=== PATIENT | female | born 1990 | race Caucasian/White ===

== ENCOUNTER 2022-05-23 17:04 | Day surgery (SDC) | payer BC ==
[~2022-05-23] VITALS: Ht 175.3 cm; Wt 84.5 kg
[2022-05-23] MEDS ORDERED: MOTRIN IB200 MG (17:28)
[2022-05-24] MEDS ORDERED: HYDROCODON-ACE1 EA10 PO (10:31)
--- NOTE | 2022-06-05 03:04 | PATH ---
[facility] [address] [place] [address] Signed SPECIMEN(S): A LEFT FALLOPIAN TUBE, ECTOPIC PREG SPECIMEN SOURCE: A. LEFT FALLOPIAN TUBE, ECTOPIC PREG CLINICAL HISTORY: Ectopic (10 weeks LMP), left tubal (gestational sac US 6 weeks). FINAL PATHOLOGIC DIAGNOSIS: Left fallopian tube, ectopic , left salpingectomy: - Disrupted portions of fallopian tube with thrombus and associated immature chorionic villi and decidua, consistent with ectopic fallopian tube . COMMENT: As part of [employer]' Quality Improvement Program, this case was reviewed by another member of our pathology staff. NRT:kendall:C2NR MICROSCOPIC EXAMINATION: Histologic sections of all submitted blocks are examined by light microscopy. These findings, together with the gross examination, support the pathologic diagnosis. GROSS DESCRIPTION: The specimen, labeled "MB, A," and designated on the requisition "left fallopian tube and ectopic ," is received in formalin and consists of a markedly fragmented portion of desai to red-brown soft tissue and fallopian tube (5.0 x 4.5 x 2.4 cm in aggregate). The tissue is sectioned to reveal pink-desai to red-brown cut surfaces. No parts are grossly identified. Customer Service And Sales Consultant sections are submitted in cassettes (A1-A3). AC (under the direct supervision of a pathologist) The Gross Description was prepared using a voice recognition system. The report was reviewed for accuracy; however, sound-alike word errors, addition and/or deletions may occur. If there is any question about this report, please contact Client Services. PERFORMING LABORATORY: The technical component was performed by [facility], [address] [place] [id number] (CLIA# [id number]). Professional interpretation was performed by [facility] PATIENT NAME: RITA RIVERO PATHOLOGY DATE OF : 88 REPORT #: [id number] PHYSICIAN: [facility] PCP: NO PRIMARY CARE PHYSICIAN REPORT IS CONFIDENTIAL AND NOT TO BE RELEASED WITHOUT AUTHORIZATION [facility] [address] [place], [place] [address] Signed [facility], [address] [place] [address], [facility] D, [place] [address] (CLIA# [id number]). Diagnostician: Mi Dyer MD Pathologist Electronically Signed 06/05/2022 Copies: ~ PATIENT NAME: RITA RIVERO PATHOLOGY DATE OF : [birth year] REPORT #: [id number] PHYSICIAN: [facility] PCP: NO PRIMARY CARE PHYSICIAN REPORT IS CONFIDENTIAL AND NOT TO BE RELEASED WITHOUT AUTHORIZATION
--- NOTE | 2022-06-05 21:00 | OR ---
[address], [place] [address] Signed DATE OF OPERATION: 05/23/2022 SURGEON: Ute Melgar DO PROCEDURE: Laparoscopic left salpingectomy, lysis of adhesions, chromopertubation. CSM CONSULTANT: Ni Adam MD PREOPERATIVE DIAGNOSES: Left tubal ectopic , infertility. POSTOPERATIVE DIAGNOSES: Left tubal ectopic , pelvic adhesions and endometriosis, infertility. ANESTHESIA: General. COMPLICATIONS: None. BLOOD LOSS: 50 mL. FINDINGS: Normal-appearing uterus, tubes with significant filmy adhesions to the pelvic sidewall, Electronically Signed By: UTE MELGAR DO 06/05/22 2100 PATIENT NAME: ANDERSON RIVERODESIRE SHERLYN Kearney OPERATIVE REPORT DATE OF : [birth year] REPORT #: [id number] PHYSICIAN: UTE MELGAR DO PCP: NO PRIMARY CARE PHYSICIAN REPORT IS CONFIDENTIAL AND NOT TO BE RELEASED WITHOUT AUTHORIZATION [address] [place], [place] [address] Signed posterior cul-de-sac, and underlying bowel. Left distal end of tube distended and distorted, densely incorporated with ectopic , which appeared to be partially adherent to the left ovary as well. Otherwise, normal left ovarian tissue. Right tube contorted and kinked, obscuring full view of right ovary. No methylene blue spillage was visualized from right tube, endometriosis lesions on the left uterosacral ligament. No liver capsule adhesions visualized. INDICATIONS: The patient is a 32-year-old, G4, P3-0-0-3, who presented to clinic for urgent followup immediately after ultrasound where an ectopic was noted in the left adnexa measuring greater than 5 cm. It was thought to be a tubal , separate from the ovary itself. Endometrial stripe was 2.5 cm and the patient had notable left lower quadrant tenderness and bleeding on exam. Risks, benefits, and alternatives to surgical versus medical versus expectant management were discussed, particularly highlighting the current symptomatic nature and size of ectopic and thickness of the endometrium as contraindications for medical management. Reviewed risks of rupture and acute hemodynamic instability, potential for catastrophic hemorrhage and . Risks, benefits, and alternatives to surgical management of ectopic were discussed. Discussed salpingectomy versus salpingostomy and concern for future fertility as well as concern for future recurrent ectopic . Discussed prior HSG concerning for possily hydrosalpinx bilaterally. Consents were signed and questions of the patient and her were answered to the best of my ability. DESCRIPTION OF PROCEDURE: The patient was taken to the operating room where she was placed under general anesthesia and positioned in dorsal lithotomy and prepped and draped in normal sterile fashion. Weighted speculum was placed in the vagina. The cervix was grasped with an Allis clamp in the 12 o'clock position and acorn uterine manipulator was placed without difficulty. Surgeon's gloves were changed and attention was turned to the abdomen where a 5 mm vertical incision was made in the umbilicus with a scalpel and a 5 mm trocar was placed under direct visualization. Pneumoperitoneum was achieved using CO2 gas. A 5 mm incision was made in the left lower quadrant with a scalpel after infiltration with local anesthetic and 5 mm trocar was placed under direct visualization without complication. In the right lower quadrant, an 8 mm incision was made with a scalpel after infiltration with local anesthetic and an 8 mm expandable trocar was placed without difficulty under Electronically Signed By: UTE MELGAR DO 06/05/22 2100 PATIENT NAME: RITA RIVERO OPERATIVE REPORT DATE OF : 88 REPORT #: [id number] PHYSICIAN: UTE MELGAR DO PCP: NO PRIMARY CARE PHYSICIAN REPORT IS CONFIDENTIAL AND NOT TO BE RELEASED WITHOUT AUTHORIZATION [facility] [address] [place], [place] [address] Signed direct visualization, first with a Veress needle and then with an expanding trocar. The patient was positioned in Trendelenburg and pelvis was surveyed with findings as noted above. Due to the morbidly adherent nature of the to the fimbriated end of the tube, decision was made to proceed with salpingectomy. Tube was transected and cut at the cornua using a LigaSure device and dissection was continued parallel to the tube along the mesosalpinx with some difficulty encountered due to significant distortion of the tube. Filmy pelvic adhesions were lysed with the LigaSure device to allow full mobilization of the distal end of the tube, which could then be cauterized and cut with LigaSure device, excising the tube and allowing for full visualization of the otherwise normal-appearing left ovary. Filmy adhesions on the right were taken down with LigaSure device and blunt dissection. Chromopertubation was performed injecting dilute methylene blue through the acorn uterine manipulator while the right tube was noted to distend with fluid. No spillage was noted. Ectopic was placed in an EndoCatch bag and brought through the right lateral trocar. Pelvis was suction irrigated with warm sterile saline. Fascia was closed with 0 Vicryl, first using a Luis-Jennifer device with direct visualization and then in the middle using the UR needle also under direct visualization without complication. Excellent closure was noted. Pneumoperitoneum was evacuated. Hemostasis persisted after evacuation of pneumoperitoneum. The skin was closed with 4-0 Monocryl. Mcdowell was removed and uterine manipulator was removed. Sponge and instrument counts were correct and the patient was taken to recovery in stable and satisfactory condition. Ute Melgar DO EMZ/MODL /[id number] Copies: ~ Electronically Signed By: UTE MELGAR DO 06/05/22 2100 PATIENT NAME: RITA RIVERO OPERATIVE REPORT DATE OF : 88 REPORT #: [id number] PHYSICIAN: UTE MELGAR DO PCP: NO PRIMARY CARE PHYSICIAN REPORT IS CONFIDENTIAL AND NOT TO BE RELEASED WITHOUT AUTHORIZATION
== END 2022-05-24 12:25 | disposition home or self-care (01) ==
LOC: FBCO 17:04 → FBC 17:04 → FBCO 05-24 12:25
PROVIDERS: ATTEND Obstetrics & Gynecology
PROC: 0UB64ZZ Excision of Left Fallopian Tube, Percutaneous Endoscopic Approach (ICD-10-PCS; principal; 2022-05-23 18:51)
DX: O00.102 Left tubal pregnancy without intrauterine pregnancy (principal); Z20.822 Contact with and (suspected) exposure to COVID-19; Z87.42 Personal history of other diseases of the female genital tract
CPT/HCPCS: 00840; 36415; 85027; 86850; 86900; 86901; 87502; A9270; C9803; J0131; J1100; J1885; J2001; J2405; J2704; J3010; Q9968; U0003

== ENCOUNTER 2023-08-02 09:02 | Inpatient (IN) | payer OTHER ==
[~2023-08-02] VITALS: Ht 175.3 cm; Wt 110.2 kg
[~2023-08-02 09:02] MED LIST: HYDROCODON-ACE1 EA10 PO; MOTRIN IB200 MG
[2023-08-02 10:44] LABS: BASOPHILS 0.3 % (0-2); EOSINOPHILS 0.6 % (0-6); HEMATOCRIT 35.5 % (35.0-50.0); HEMOGLOBIN 11.8 g/dL (12.0-18.0); LYMPHOCYTES 21.1 % (24-44); MCH 27.8 (27-36); MCHC 33.3 g/dl (30-36); MCV 83.4 fl (81-99); MONOCYTES 8.1 % (0-12); NEUTROPHILS 69.9 % (39-80); PLATELET COUNT 208 K/uL (140-440); RBC 4.26 M/ul (4.3-5.7); RDW 15.2 (10.5-15.0)
[2023-08-02 11:20] LABS: ABO O; ANTIBODY SCREEN NEGATIVE; RH POSITIVE
[2023-08-02 12:05] LABS: ALBUMIN 2.2 g/dL (3.4-5.0); ALBUMIN/GLOBULIN RATIO 0.5 (1.1-2.4); ANION GAP 14.4 (7-21); BILIRUBIN, TOTAL 0.2 ng/dL (0.2-1.0); BUN/CREATININE RATIO 13.75 (6.0-28.6); CALCIUM 8.8 mg/dL (8.5-10.1); CREATININE, SERUM 0.8 mg/dL (0.55-1.02); POTASSIUM 4.4 mmol/L (3.5-5.1); PROTEIN, TOTAL 6.6 g/dL (6.4-8.2)
[2023-08-02 12:36] LABS: CREATININE, RANDOM URINE 246.42 mg/dL (NOT ESTABLISHED); PROTEIN/CREATININE RATIO 0.14 mg/mg (0.010-0.107)
[2023-08-02 12:47] LABS: AMPHETAMINES, URINE NEGATIVE (NEGATIVE); BARBITURATES, URINE NEGATIVE (NEGATIVE); BENZODIAZEPINE, URINE NEGATIVE (NEGATIVE); BUPRENORPHINE, URINE NEGATIVE (NEGATIVE); CANNABINOID, URINE NEGATIVE (NEGATIVE); COCAINE, URINE NEGATIVE (NEGATIVE); ECSTASY, URINE NEGATIVE (NEGATIVE); FENTANYL, URINE NEGATIVE (NEGATIVE); METHADONE, URINE NEGATIVE (NEGATIVE); OPIATES, URINE NEGATIVE (NEGATIVE); OXYCODONE, URINE NEGATIVE (NEGATIVE); PHENCYCLIDINE, URINE NEGATIVE (NEGATIVE)
--- NOTE | 2023-08-02 14:27 | PR ---
[facility] [address] [facility] [place], [place] [address] Signed Progress Notes IP Datetime Report Generated by CPN: 08/02/2023 14:27 PROGRESS NOTES: [id number] Impression: Reassuring Heart Rate Plan: Continue Present Management VITAL SIGNS: [id number] Vital Signs: Reviewed VS Notable Details: No severe range BPs EXAM: [id number] Effacement: 25 Station: -3 Contractions: Irregular MEMBRANES: [id number] Comments: Pt seen and evaluated. Doing well. Occasional non-painful contractions. No severe range BPs or other concerns. Continue induction. FETUS A: [id number] FHR Baseline: 150 Variability: Moderate 6-25bpm Accelerations: 15X15 Decelerations: None FHR Category: Category I Presentation: Vertex Comments on Fetus A: No evidence of metabolic acidosis FETUS B: [id number] Signing Physician: Dax Hoff DO Copies: ~ *Electronically Signed* 08/02/23 1427 DAX HOFF (ALINA) DO PATIENT NAME: KRYSTINAKISHARITA PEGUERO Caoi PROGRESS NOTE DATE OF : 88 PHYSICIAN: DAX HOFF (ALINA) DO RPT #: [id number] REPORT IS CONFIDENTIAL AND NOT TO BE RELEASED WITHOUT AUTHORIZATION
--- NOTE | 2023-08-02 17:43 | PR ---
[facility] [address] [place], [place] [address] Signed Progress Notes IP Datetime Report Generated by AMANDA: 08/02/2023 17:42 PROGRESS NOTES: [id number] Impression: Normal Progression of Labor; Reassuring Heart Rate Procedures: Sterile Vag Exam Plan: Continue Present Management; Cervical Ripening VITAL SIGNS: [id number] Vital Signs: Reviewed VS Notable Details: No severe range BPs EXAM: [id number] Dilatation: 1.0 Effacement: 25 Station: -3 Contractions: Rare MEMBRANES: [id number] Comments: Pt seen and examined. Doing well. Comfortable. Cervix unchanged after 2 doses of cytotec. No severe range BPs or symptoms. Discussed options for continued cervical ripening w/ cytotec vs Cook Cath. Pt desires cytotec. Will continue induction as planned w/ AROM when cervix ripe. All questions answered. FETUS A: [id number] FHR Baseline: 150 Variability: Moderate 6-25bpm Accelerations: 15X15 Decelerations: None FHR Category: Category I Presentation: Vertex Comments on Fetus A: No evidence of metabolic acidosis FETUS B: [id number] Signing Physician: Dax Hoff DO Copies: ~ *Electronically Signed* 08/02/23 0038 DAX HOFF (ALINA) DO PATIENT NAME: RITA RIVERO PROGRESS NOTE DATE OF : 88 PHYSICIAN: DAX HOFF (JD) DO RPT #: [id number] REPORT IS CONFIDENTIAL AND NOT TO BE RELEASED WITHOUT AUTHORIZATION
--- NOTE | 2023-08-03 07:09 | PR ---
[facility] [address] [place], [place] [address] Signed Progress Notes IP Datetime Report Generated by AMANDA: 08/03/2023 07:09 PROGRESS NOTES: [id number] Impression: Normal Progression of Labor; Reassuring Heart Rate Procedures: Sterile Vag Exam Plan: Continue Present Management; Anticipate Vaginal Delivery Informed Consent Obtain: Vaginal Delivery VITAL SIGNS: [id number] Vital Signs: Reviewed VS Notable Details: No severe range BPs EXAM: [id number] Dilatation: 7.0 Effacement: 90 Station: -2 Contractions: q 2 minutes MEMBRANES: [id number] Comments: Pt seen and examined. Doing well. Increased contractions and pt kindly received epidural per anesthesia and is now comfortable. SROM for moderate amount of meconium stained fluid. Anticipate soon. All questions answered. Will monitor FHT closely FETUS A: [id number] FHR Baseline: 150 Variability: Moderate 6-25bpm Accelerations: 15X15 Decelerations: Variable FHR Category: Category II Presentation: Vertex Comments on Fetus A: No evidence of metabolic acidosis FETUS B: [id number] Signing Physician: Dax Hoff DO Copies: ~ *Electronically Signed* 08/03/23708 DAX HOFF (ALINA) DO PATIENT NAME: RITA RIVERO PROGRESS NOTE DATE OF : 88 PHYSICIAN: DAX HOFF (JD) DO RPT #: [id number] REPORT IS CONFIDENTIAL AND NOT TO BE RELEASED WITHOUT AUTHORIZATION
[2023-08-04 05:23] LABS: HEMATOCRIT 30.7 % (35.0-50.0); HEMOGLOBIN 10.5 g/dL (12.0-18.0); MCH 28.2 (27-36); MCHC 34.2 g/dl (30-36); MCV 82.3 fl (81-99); RBC 3.73 M/ul (4.3-5.7)
--- NOTE | 2023-08-04 08:08 | PR ---
[facility] [address] [place], [place] [address] Signed PP Progress Notes Datetime Report Generated by CPN: 08/04/2023 08:08 SUBJECTIVE: [id number] Pain: Within Normal Limits Nausea/Vomiting: Denies Flatus: Yes Bowel Movement: No Vital Signs: [id number] Vital Signs: Reviewed Notable Details: No sustained elevated BPs. Asymptomatic Cardiovascular: Normal Respiratory: Normal Abdomen/Uterus: Normal Lochia: Normal Vulva/Perineum: Not Done Breasts: Not Done CVA Tenderness: Normal Extremities: Normal Incision: Not Applicable Progress: Normal Exam Comments: Fundus firm U-2 nontender IMPRESSION/PLAN/PROCEDURES: [id number] Impression: Normal Progression Plan: Discharge Progress Notes: Pt seen and examined. Doing well. Ambulating, voiding, and tolerating full diet. Pain and lochia minimal. well. No sustained elevated BPs yesterday and no YUN, RUQ pain, or visual changes. Reviewed s/sx pp preE. Discussed importance of BP check early next week. Reviewed shoulder dystocia and baby is doing well today. Reviewed maneuvers employed and all questions were answered. Discussed implications on future deliveries; pt and are unsure if they will attempt again. Hx of infertility and declines contraception. Reviewed d/c instructions and medications in detail. All questions answered. Signing Physician: Dax Hoff DO Copies: ~ *Electronically Signed* 08/04/23 0808 DAX HOFF (ALINA) DO PATIENT NAME: RITA RIVERO PROGRESS NOTE DATE OF : 88 PHYSICIAN: DAX HOFF (JD) DO RPT #: [id number] REPORT IS CONFIDENTIAL AND NOT TO BE RELEASED WITHOUT AUTHORIZATION
== END 2023-08-04 11:30 | disposition home or self-care (01) | DRG 807 ==
LOC: FBCO 09:02 → FBC 09:45
PROVIDERS: ADMIT Obstetrics & Gynecology; ATTEND Obstetrics & Gynecology
PROC: 10E0XZZ Delivery of Products of Conception, External Approach (ICD-10-PCS; principal; 2023-08-03)
PROC: 4A033R1 Measurement of Arterial Saturation, Peripheral, Percutaneous Approach (ICD-10-PCS; 2023-08-03)
PROC: 3E0R3BZ Introduction of Anesthetic Agent into Spinal Canal, Percutaneous Approach (ICD-10-PCS; 2023-08-03)
PROC: 00HU33Z Insertion of Infusion Device into Spinal Canal, Percutaneous Approach (ICD-10-PCS; 2023-08-03)
DX: O66.0 Obstructed labor due to shoulder dystocia (principal); Z37.0 Single live birth; Z3A.39 39 weeks gestation of pregnancy; O76 Abnormality in fetal heart rate and rhythm complicating labor and delivery; O77.0 Labor and delivery complicated by meconium in amniotic fluid; O13.4 Gestational [pregnancy-induced] hypertension without significant proteinuria, complicating childbirth
CPT/HCPCS: 36415; 80053; 80307; 82565; 82570; 82803; 83615; 84156; 84550; 85025; 85027; 86850; 86900; 86901; A9270; J2590; J7121

== ENCOUNTER 2025-03-23 19:46 | Emergency (ER) | payer OTHER ==
[~2025-03-23] VITALS: Ht 175.3 cm; Wt 98.0 kg
--- OUTSIDE RECORDS SUMMARY | 2025-03-23 19:50 | XMS ---
PreManage Notification: RITA RIVERO Security Cream Beater Events No recent Security Events currently on file CRITERIA MET - - 2 Visits in 30 Days CARE PROVIDERS There are no care providers on record at this time. [facility] has no Care Guidelines for this patient. Arlene VISIT COUNT (12 MO.) [facility] [place] T[facility] 2 NOTE: Visits indicate total known visits. ED/C VISIT TRACKING (12 MO.) 03/23/2025 19:47 [facility] TYPE: Emergency COMPLAINT: - SOB [facility]23[facility]2025 16:[facility] [place] [facility]: Emergency INPATIENT VISIT TRACKING (12 MO.) No inpatient visits to display in this time frame [email or web address]
[2025-03-23] MEDS ORDERED: AZITHROMYCIN250 MG PO (19:57)
[2025-03-23] MEDS ORDERED: LACTATED RINGER'S 1,000 ML IV ONE (20:00)
[2025-03-23] MEDS ORDERED: PRENATAL MULTI1 EAC3 PO (20:04)
[2025-03-23] MEDS ORDERED: ACETAMINOPHEN 325 MG TAB PO ONE (20:30)
[2025-03-23 20:31] LABS: BASOPHILS 0.3 % (0.1-1.2); EOSINOPHILS 0.5 % (0.7-5.8); LYMPHOCYTES 13.0 % (19.3-51.7); MCH 28.3 PG (25.6-32.2); MCHC 34.3 g/dL (32.2-35.5); MCV 82.3 fL (79.4-94.8); MONOCYTES 10.8 % (4.7-12.5); NEUTROPHILS 74.7 % (34.0-71.1); RBC 3.61 M/uL (3.93-5.22)
[2025-03-23 20:46] LABS: ALT (SGPT) 12.0 U/L (14-59); AST (SGOT) 12.0 U/L (15-37); GLOMERULAR FILTRATION RATE,EST 118.0 mL/min (>60); PROTEIN, TOTAL 6.6 g/dL (6.4-8.2); UREA NITROGEN 3.0 mg/dL (7-18)
[2025-03-23] MEDS ORDERED: CYCLOBENZAPRINE10 MG PO (22:09)
[2025-03-23] MEDS ORDERED: CYCLOBENZAPRINE HCL 10 MG HOME.PACK PO ONE (22:15)
[2025-03-23 22:44] VITALS: BP 107/70
[2025-03-23] MEDS ORDERED: ALBUTEROL SULFATE 8 GM HOME.PACK INH ONE (22:45)
== END 2025-03-23 22:45 | disposition home or self-care (01) ==
LOC: ED 19:46
PROVIDERS: Family Medicine
DX: A49.3 Mycoplasma infection, unspecified site (principal)
CPT/HCPCS: 36415; 80053; 85025; 94640; 99284; A9270; J7121

== ENCOUNTER 2025-06-05 18:52 | Inpatient (IN) | payer OTHER ==
[~2025-06-05] VITALS: Ht 175.3 cm; Wt 105.7 kg
--- OUTSIDE RECORDS SUMMARY | ~2025-06-05 | XMS | Continuity of Care Document ---
Demographics + + + | Address | [address] | | | [place] [address] | + + + | Preferred Language | Unknown | + + + | Marital Status | | + + + | Evangelical Affiliation | Unknown | + + + | Race | White | + + + | Ethnic Group | Not or | + + + Author + + + | Author | [facility] | + + + | Organization | [facility] | + + + | Address | [address] | | | [place] [address] | + + + | Phone | | + + + Care Team Providers + + + + | Care Pay Station Department Manager Name | Role | Phone | + + + + Unavailable | Unavailable | + + + + Unavailable | Unavailable | + + + + Allergies No information. Encounters No information. Functional Status No information. Immunizations No information. Medications + + + + | date | description | facility | + + + + | (no date) | AZITHROMYCIN | [facility] | | | | [facility] | + + + + | 2025-03-23 00:00 | CYCLOBENZAPRINE HCL | [facility] | | | | [facility] | + + + + Problems + + + + | date | description | facility | + + + + | 2025-03-23 00:00 | Mycoplasma infection | [facility] | | | | [facility] | + + + + Procedures No information. Results/Labs +--------+--------+ +---------+--------+---------+ | test | date | facility | value | unit | notes | +--------+--------+ +---------+--------+---------+ + + | Result panel 1 | + + + + + +--------+ + + | WBC # Bld | 2025-03-23 | | 7.51 | (missing) | (missing) | | Auto | 20:26:07 | [facility] | | | | + + + +--------+ + + + + | Result panel 2 | + + + + + +--------+ + + | Lymphocytes | 2025-03-23 | | 13.0 | (missing) | (missing) | | NFr Bld | 20:26:07 | [facility] | | | | | Auto [facility] | | | | + + + +--------+ + + + + | Result panel 3 | + + + + + +--------+ + + | Monocytes | 2025-03-23 | | 10.8 | (missing) | (missing) | | NFr Bld Auto | 20:26:07 | [facility] | | | | + + + +--------+ + + + + | Result panel 4 | + + + + + +-------+ + + | Eosinophil | 2025-03-23 | | 0.5 | (missing) | (missing) | | NFr Bld Auto | 20:26:07 | [facility] | | | | + + + +-------+ + + + + | Result panel 5 | + + + + + +-------+ + + | Basophils | 2025-03-23 | | 0.3 | (missing) | (missing) | | NFr Bld Auto | 20:26:07 | [facility] | | | | + + + +-------+ + + + + | Result panel 6 | + + + + + +-------+---------+ + | Glucose | 2025-03-23 | | 104 | mg/dL | (missing) | | Priya-abdelrahman | 20:26:07 | [facility] | | | | + + + +-------+---------+ + + + | Result panel 7 | + + + + + +-----+---------+ + | BUN | 2025-03-23 | | 3 | mg/dL | (missing) | | SerPl-mCnc | 20:26:07 | [facility] | | | | + + + +-----+---------+ + + + | Result panel 8 | + + + + + +--------+---------+ + | Creat | 2025-03-23 | | 0.64 | mg/dL | (missing) | | Priya-mCnc | 20:26:07 | [facility] | | | | + + + +--------+---------+ + + + | Result panel 9 | + + + + + +-------+ + + | eGFRcr | 2025-03-23 | | 118 | (missing) | (missing) | | SerPlBld | 20:26:07 | [facility] | | | | | CKD-EPI 2020 | [facility] | | | | + + + +-------+ + + + + | Result panel 10 | + + + + + +--------+ + + | BUN/Creat | 2025-03-23 | | 4.68 | (missing) | (missing) | | SerPl | 20:26:07 | [facility] | | | | + + + +--------+ + + + + | Result panel 11 | + + + + + +-------+ + + | Sodium | 2025-03-23 | | 134 | (missing) | (missing) | | SerPl-sCnc | 20:26:07 | [facility] | | | | + + + +-------+ + + + + | Result panel 12 | + + + + + +--------+ + + | RBC # Bld | 2025-03-23 | | 3.61 | (missing) | (missing) | | Auto | 20:26:07 | [facility] | | | | + + + +--------+ + + + + | Result panel 13 | + + + + + +-------+ + + | Potassium | 2025-03-23 | | 3.3 | (missing) | (missing) | | SerPl-sCnc | 20:26:07 | [facility] | | | | + + + +-------+ + + + + | Result panel 14 | + + + + + +-------+ + + | Chloride | 2025-03-23 | | 102 | (missing) | (missing) | | SerPl-sCnc | 20:26:07 | [facility] | | | | + + + +-------+ + + + + | Result panel 15 | + + + + + +------+ + + | CO2 | 2025-03-23 | | 21 | (missing) | (missing) | | [facility] | 20:26:07 | [facility] | | | | + + + +------+ + + + + | Result panel 16 | + + + + + +--------+ + + | Anion Gap | 2025-03-23 | | 14.3 | (missing) | (missing) | | SerPl | 20:26:07 | [facility] | | | | | Calculated.4 | [facility] | | | | + + + +--------+ + + + + | Result panel 17 | + + + + + +-------+---------+ + | Calcium | 2025-03-23 | | 8.3 | mg/dL | (missing) | | SerPl-mCnc | 20:26:07 | [facility] | | | | + + + +-------+---------+ + + + | Result panel 18 | + + + + + +-------+ + + | Prot | 2025-03-23 | | 6.6 | (missing) | (missing) | | SerPl-[facility] | 20:26:07 | [facility] | | | | + + + +-------+ + + + + | Result panel 19 | + + + + + +-------+ + + | Albumin | 2025-03-23 | | 2.2 | (missing) | (missing) | | SerPsergo-[facility] | 20:26:07 | [facility] | | | | + + + +-------+ + + + + | Result panel 20 | + + + + + +-------+ + + | Globulin | 2025-03-23 | | 4.4 | (missing) | (missing) | | Ser-mCnc | 20:26:07 | [facility] | | | | + + + +-------+ + + + + | Result panel 21 | + + + + + +--------+ + + | | 2025-03-23 | | 0.50 | (missing) | (missing) | | Albumin/Glob | 20:26:07 | [facility] | | | | | [facility] | | | | + + + +--------+ + + + + | Result panel 22 | + + + + + +-------+---------+ + | Bilirub | 2025-03-23 | | 0.3 | mg/dL | (missing) | | SerPl-mCnc | 20:26:07 | [facility] | | | | + + + +-------+---------+ + + + | Result panel 23 | + + + + + +--------+ + + | Hgb | 2025-03-23 | | 10.2 | (missing) | (missing) | | Bld-mCnc | 20:26:07 | [facility] | | | | + + + +--------+ + + + + | Result panel 24 | + + + + + +------+ + + | AST | 2025-03-23 | | 12 | (missing) | (missing) | | [facility] | 20:26:07 | [facility] | | | | + + + +------+ + + + + | Result panel 25 | + + + + + +------+ + + | ALT | 2025-03-23 | | 12 | (missing) | (missing) | | SerPl-cCnc | 20:26:07 | [facility] | | | | + + + +------+ + + + + | Result panel 26 | + + + + + +-------+ + + | ALP | 2025-03-23 | | 107 | (missing) | (missing) | | SerPl-cCnc | 20:26:07 | [facility] | | | | + + + +-------+ + + + + | Result panel 27 | + + + + + +--------+ + + | Hct VFr.DF | 2025-03-23 | | 29.7 | (missing) | (missing) | | Bld Auto | 20:26:07 | [facility] | | | | | | | - | [facility] | | | | | [facility] | | | | + + + +--------+ + + + + | Result panel 28 | + + + + + +--------+ + + | RBC Auto | 2025-03-23 | | 82.3 | (missing) | (missing) | | | 20:26:07 | [facility] | | | | + + + +--------+ + + + + | Result panel 29 | + + + + + +--------+ + + | MCH RBC Qn | 2025-03-23 | | 28.3 | (missing) | (missing) | | Auto | 20:26:07 | [facility] | | | | + + + +--------+ + + + + | Result panel 30 | + + + + + +--------+ + + | MCHC RBC | 2025-03-23 | | 34.3 | (missing) | (missing) | | Auto-EntMCnc | 20:26:07 | [facility] | | | | + + + +--------+ + + + + | Result panel 31 | + + + + + +-------+ + + | Platelet # | 2025-03-23 | | 172 | (missing) | (missing) | | Bld Auto | 20:26:07 | [facility] | | | | + + + +-------+ + + + + | Result panel 32 | + + + + + +--------+ + + | Neutrophils | 2025-03-23 | | 74.7 | (missing) | (missing) | | NFr Bld | 20:26:07 | [facility] | | | | Auto [facility] | | | | + + + +--------+ + + Social History +--------+ + + | date | description | facility | +--------+ + + Vital Signs + + + +---------+ | date | measurement | value | units | + + + +---------+ | 2025-03-23 00:00 | BMI | 31.9 | kg/m2 | + + + +---------+ | 2025-03-23 00:00 | BP_diastolic | 70 | mmHg | + + + +---------+ | 2025-03-23 00:00 | BP_systolic | 107 | mmHg | + + + +---------+ | 2025-03-23 00:00 | heart_rate | 88 | /min | + + + +---------+ | 2025-03-23 00:00 | height_metric | 175.26 | cm | + + + +---------+ | 2025-03-23 00:00 | height_standard | 69 | in | + + + +---------+ | 2025-03-23 00:00 | o2_saturation | 96 | % | + + + +---------+ | 2025-03-23 00:00 | respiration_rate | 19 | /min | + + + +---------+ | 2025-03-23 00:00 | | 98.1 | F | | | temperature_standar | | | | | d | | | + + + +---------+ | 2025-03-23 00:00 | weight_metric | 98.001 | kg | + + + +---------+ | 2025-03-23 00:00 | weight_standard | 216.056 | lb | + + + +---------+"
[~2025-06-05 18:52] MED LIST changes: +AZITHROMYCIN250 MG PO; +CYCLOBENZAPRINE10 MG PO; +PRENATAL MULTI1 EAC3 PO
[2025-06-05 20:47] VITALS: BP 123/81
--- NOTE | 2025-06-05 20:50 | PR ---
[facility] [address] [facility] [place], [place] [address] Signed Progress Notes IP Datetime Report Generated by CPN: 06/05/2025 20:50 PROGRESS NOTES: [id number] Impression: Reassuring Heart Rate; Rupture of Membranes Other Impressions: Transverse lie on US Informed Consent Obtain: Section Delivery; Risks, Benefits and Alternatives Discussed VITAL SIGNS: [id number] Vital Signs: Reviewed; Within Normal Limits EXAM: [id number] Station: -3 MEMBRANES: [id number] ROM Note: SROM at home at 1715 Comments: Pt w/ transverse lie on bedside US. Discussed ECV not safe w/ labor and ROM. Recommend primary C/S. Pt reports her last two BPPs showed vertex position, but that she and her partner had been prepared for C/S if transverse at time of labor. Consents / orders completed. FETUS A: [id number] FHR Baseline: 145 Accelerations: None Presentation: Vertex Comments on Fetus A: No evidence of metabolic acidosis FETUS B: [id number] Signing Physician: Dax Hoff DO Copies: ~ *Electronically Signed* 06/05/252049 DAX HOFF (ALINA) DO PATIENT NAME: RITA RIVERO PROGRESS NOTE DATE OF : 88 PHYSICIAN: DAX HOFF (JD) DO RPT #: [id number] REPORT IS CONFIDENTIAL AND NOT TO BE RELEASED WITHOUT AUTHORIZATION
[2025-06-05] MEDS ORDERED: AZITHROMYCIN 500 MG in DEXTROSE 5% 250 ML IV SCH (20:54)
[2025-06-05] MEDS ORDERED: CEFAZOLIN SODIUM 2 GM in SODIUM CHLORIDE 0.9% 100 ML IV SCH (20:54)
[2025-06-05 20:58] LABS: MCH 25.9 PG (25.6-32.2); MCHC 32.5 g/dL (32.2-35.5); MCV 79.7 fL (79.4-94.8); RBC 3.79 M/uL (3.93-5.22)
[2025-06-05] MEDS ORDERED: LACTATED RINGER'S 1,000 ML IV PRN (21:00)
[2025-06-05] MEDS ORDERED: OXYTOCIN 10 UNITS/ML VIAL ONE (21:23)
[2025-06-05] MEDS ORDERED: LIDOCAINE HCL 2% 5 ML SDV ONE (21:23)
[2025-06-05] MEDS ORDERED: BUPIVACAINE 0.75% IN DEXTROSE 2 ML AMP ONE (21:23)
[2025-06-05] MEDS ORDERED: PHENYLEPHRINE HCL IN 0.9% NACL 1 MG/10 ML SYR ONE (21:23)
[2025-06-05 21:28] LABS: ABO O; RH POSITIVE
[2025-06-05 21:29] LABS: ANTIBODY SCREEN NEGATIVE
[2025-06-05] MEDS ORDERED: Ropivacaine HCl 0.5% 30 ML VIAL ONE (21:31)
[2025-06-05] MEDS ORDERED: ACETAMINOPHEN 1,000 MG/100 ML VIAL ONE (22:30)
[2025-06-05] MEDS ORDERED: DEXAMETHASONE SOD PHOS 4 MG/ML VIAL ONE (22:30)
[2025-06-05] MEDS ORDERED: LACTATED RINGER'S 1,000 ML IV SCH (23:26)
[2025-06-05] MEDS ORDERED: fentaNYL citrate 50 MCG/ML SDV IV PRN (23:30)
[2025-06-05] MEDS ORDERED: NALOXONE HCL 0.4 MG SYR IV PRN (23:30)
[2025-06-05] MEDS ORDERED: PROCHLORPERAZINE EDISYLATE 10 MG/2 ML VIAL IV PRN (23:30)
[2025-06-05] MEDS ORDERED: HYDROmorphone HCL 1 MG/ML SYR IV PRN (23:30)
[2025-06-05] MEDS ORDERED: IBLOOD GLUCOSE TEST STRIP 1 EA TEST VI PRN (23:30)
[2025-06-05] MEDS ORDERED: PROMETHAZINE HCL 25 MG TAB PO PRN (23:30)
[2025-06-05] MEDS ORDERED: PROMETHAZINE HCL 25 MG SUPP PR PRN (23:30)
[2025-06-05] MEDS ORDERED: METOCLOPRAMIDE HCL 10 MG/2 ML SDV IV PRN (23:30)
[2025-06-05] MEDS ORDERED: OXYCODONE/APAP 5/325 TAB PO PRN (23:30)
[2025-06-05] MEDS ORDERED: OXYTOCIN/0.9 % SODIUM CHLORIDE 500 ML IV SCH (23:30)
[2025-06-05] MEDS ORDERED: HYDROCODONE/ACETA 5/325 TAB PO PRN (23:30)
[2025-06-05 23:47] VITALS: BP 102/57
--- NOTE | 2025-06-05 23:51 | NUR ---
06/05/25 2351 Leslie Russell 2312- PT TAKEN TO ROOM 101 IN [facility], PT AWAKE BUT DROWSY. BREATHING EVEN AND NON LABORED ON ROOM AIR. LR WITH 20 UNITS OF PITOCIN FINISHING TO 18 G IV IN RW WITH DRESSING CDI. ABD SOFT, NON DISTENDED. SMALL AMOUNT OF BLOOD NOTED ON NYLA PAD, NO BLEEDING WITH FUNDUS CHECK. PT DENIES PAIN OR NAUSEA. ALL MONITORS IN PLACE. CLEAR YELLOW URINE DRAINING BY WEBER CATHETER. 2315- BABY BROUGHT TO BEDSIDE BY DAD, C RN ASSISTED WITH PLACING BABY SKIN TO SKIN. 2317- PT BP DROPS A LITTLE WITH SITTING UP, DENIES DIZZINESS OR NAUSEA. NO CHANGE. 2325- PT CONTINUES TO DENY PAIN, PT IS SKIN TO SKIN WITH BABY. 2332- REPORT TO Carmine CROSS RN AT BEDSIDE, CARE OF PT TURNED OVER AT THIS TIME.
[2025-06-06] MEDS ORDERED: IBUPROFEN 600 MG TAB PO SCH ×3 (02:00→23:00)
[2025-06-06] MEDS ORDERED: KETOROLAC TROMETHAMINE 30 MG/ML VIAL IV SCH ×2 (02:00→05:00)
[2025-06-06] MEDS ORDERED: LACTATED RINGER'S 1,000 ML IV SCH (05:00)
[2025-06-06 05:24] LABS: MCH 26.3 PG (25.6-32.2); MCHC 32.5 g/dL (32.2-35.5); MCV 80.8 fL (79.4-94.8); RBC 3.12 M/uL (3.93-5.22)
[2025-06-06 05:35] LABS: INR 1.01 (0.80-1.30); PROTIME 12.6 Sec (11.2-14.2)
[2025-06-06] MEDS ORDERED: SIMETHICONE 80 MG CHEW PO SCH (07:00)
--- NOTE | 2025-06-06 07:39 | PR ---
[facility] [address] [place], [place] [address] Signed PP Progress Notes Datetime Report Generated by CPN: 06/06/2025 07:39 SUBJECTIVE: [id number] Pain: Within Normal Limits Nausea/Vomiting: Denies Flatus: Yes Bowel Movement: No Vital Signs: [id number] Vital Signs: Reviewed; Within Normal Limits Cardiovascular: Normal Respiratory: Normal Abdomen/Uterus: Normal Lochia: Normal Vulva/Perineum: Not Done Breasts: Not Done CVA Tenderness: Normal Extremities: Normal Incision: Normal Progress: Normal Exam Comments: fundus firm U-2 nontender. Incision bandaged. Jean Baptiste in place. IMPRESSION/PLAN/PROCEDURES: [id number] Impression: Normal Progression Plan: Continue Present Management Progress Notes: Pt seen and examined. Doing well. Some nausea / lightheadedness this morning w/ ambulating but doing much better. Hgb 8.2. D/C jean baptiste, saline lock IV. Anticipate d/c home POD #[id number]. Signing Physician: Dax Hoff DO Copies: ~ *Electronically Signed* 06/06/25 0739 DAX HOFF ([place]) DO PATIENT NAME: BOTEFUHR,MATTYSON SHERLYN MANDI PROGRESS NOTE DATE OF : 88 PHYSICIAN: DAX HOFF (JD) DO RPT #: [id number] REPORT IS CONFIDENTIAL AND NOT TO BE RELEASED WITHOUT AUTHORIZATION
[2025-06-06] MEDS ORDERED: SENNOSIDES/DOCUSATE 1 EA TAB PO SCH (09:00)
[2025-06-06] MEDS ORDERED: ENOXAPARIN SODIUM 40 MG/0.4 ML SYR SUB-Q SCH (12:00)
[2025-06-07] MEDS ORDERED: IBUPROFEN 600 MG TAB PO SCH ×2 (02:00→05:00)
[2025-06-07] MEDS ORDERED: FERROUS SULFATE 325 MG TAB PO SCH (21:00)
== END 2025-06-08 11:05 | disposition home or self-care (01) | DRG 788 ==
LOC: FBCO 18:52 → FBC 18:56
PROVIDERS: ADMIT Obstetrics & Gynecology; ATTEND Obstetrics & Gynecology
PROC: 3E03329 Introduction of Other Anti-infective into Peripheral Vein, Percutaneous Approach (ICD-10-PCS; 2025-06-05)
PROC: 10D00Z1 Extraction of Products of Conception, Low, Open Approach (ICD-10-PCS; principal; 2025-06-05 22:10)
DX: O32.2XX0 Maternal care for transverse and oblique lie, not applicable or unspecified (principal); Z3A.37 37 weeks gestation of pregnancy; Z37.0 Single live birth; Z90.89 Acquired absence of other organs; Z90.721 Acquired absence of ovaries, unilateral; Z79.899 Other long term (current) drug therapy
CPT/HCPCS: 36415; 80053; 82803; 85027; 85384; 85610; 85730; 86850; 86900; 86901; A9270; J0131; J0165; J0456; J0688; J1100; J1650; J1885; J2003; J2405; J2590; J2795; J7060; J7121